=== PATIENT | male | born 2005 | race African-American/Black ===

== ENCOUNTER 2024-11-20 20:02 | Emergency (ER) | payer SELFPAY ==
[~2024-11-20] VITALS: Ht 182.9 cm; Wt 100.0 kg
[2024-11-20 20:27] VITALS: BP 130/79; PULSE 88; RESP 16; TEMP 98.1; O2SAT 100
[2024-11-20 21:43] LABS: BASOPHILS % 0.1 % (0.0-2.0); EOSINOPHILS % 0.1 % (0.0-5.0); HEMATOCRIT. 45.7 % (42.0-52.0); LYMPHOCYTES % 11.1 % (20.0-50.0); MEAN CORPUSCULAR HEMOGLOBIN 28.9 pg (28.0-32.0); MEAN CORPUSCULAR HGB CONC 32.8 g/dL (31.0-37.0); MEAN CORPUSCULAR VOLUME 88.2 fL (80.0-94.0); MEAN PLATELET VOLUME 8.9 fl (7.4-10.4); MONOCYTES % 4.2 % (2.0-8.0); NEUTROPHILS % 84.5 % (40.0-76.0); PLATELET 253 x1000/uL (130-400); RED BLOOD CELL COUNT 5.18 mill/uL (4.7-6.1); RED CELL DISTRIBUTION WIDTH 13.7 % (11.6-14.6); WHITE BLOOD COUNT 10.8 x1000/uL (4.5-11.0)
[2024-11-20 21:53] LABS: CHLORIDE 103 mEq/L (98-107); POTASSIUM 4.7 mEq/L (3.5-5.1); SODIUM 136 mEq/L (136-145)
[2024-11-20 21:54] LABS: CALCIUM 9.6 mg/dL (8.7-10.4); CARBON DIOXIDE 20 mEq/L (21-32)
[2024-11-20 21:59] LABS: CREATININE 1.1 mg/dL (0.6-1.3); GLUCOSE 137 mg/dL (70-105); UREA NITROGEN BLOOD 7 mg/dL (9-23)
[2024-11-20] MEDS: LEVETIRACETAM 1000MG PREMIX 100 ML IV ONE (22:06)
[2024-11-20 22:28] LABS: ETHANOL BLOOD < 10 mg/dL (<10)
[2024-11-20 22:32] LABS: LACTIC ACID 6.8 mmol/L (0.4-2.0)
[2024-11-21] MEDS ORDERED: LEVE1000 MT (01:05)
== END 2024-11-21 01:28 | disposition home or self-care (01) ==
LOC: ER 20:02
DX: S00.512A Abrasion of oral cavity, initial encounter (principal); R56.9 Unspecified convulsions; R41.82 Altered mental status, unspecified; X58.XXXA Exposure to other specified factors, initial encounter; Y93.89 Activity, other specified; Y92.89 Other specified places as the place of occurrence of the external cause; Y99.8 Other external cause status
CPT/HCPCS: 80048; 80320; 83605; 85025; 36415; 71045; 70450; 96365; 99285; J1953; Z7610 ×3; G0480

== ENCOUNTER 2025-03-23 16:13 | Emergency (ER) | payer OTHER ==
[~2025-03-23] VITALS: Ht 177.8 cm; Wt 118.0 kg
[~2025-03-23 16:13] MED LIST: LEVE1000 MT
[2025-03-23 16:14] VITALS: O2SAT 96
[2025-03-23] MEDS: LEVETIRACETAM 1000MG PREMIX 100 ML IV ONE (16:43)
[2025-03-23 16:57] LABS: BASOPHILS % 0.3 % (0.0-2.0); EOSINOPHILS % 0.4 % (0.0-5.0); HEMATOCRIT. 45.2 % (42.0-52.0); HEMOGLOBIN. 14.5 g/dL (14.0-18.0); LYMPHOCYTES % 39.1 % (20.0-50.0); MEAN CORPUSCULAR HGB CONC 32.2 g/dL (31.0-37.0); MEAN CORPUSCULAR VOLUME 87.1 fL (80.0-94.0); MEAN PLATELET VOLUME 8.8 fl (7.4-10.4); MONOCYTES % 10.8 % (2.0-8.0); NEUTROPHILS % 49.4 % (40.0-76.0); PLATELET 245 x1000/uL (130-400); RED BLOOD CELL COUNT 5.18 mill/uL (4.7-6.1); RED CELL DISTRIBUTION WIDTH 13.9 % (11.6-14.6); WHITE BLOOD COUNT 6.7 x1000/uL (4.5-11.0)
[2025-03-23 17:09] LABS: CHLORIDE 104 mEq/L (98-107); SODIUM 138 mEq/L (136-145)
[2025-03-23 17:10] LABS: CALCIUM 9.1 mg/dL (8.7-10.4); CARBON DIOXIDE 12 mEq/L (21-32)
[2025-03-23 17:15] LABS: ETHANOL BLOOD < 10 mg/dL (<10); GLUCOSE 122 mg/dL (70-105); UREA NITROGEN BLOOD 7 mg/dL (9-23)
[2025-03-23] MEDS: IBUPROFEN 600MG TABLET PO ONE (18:51)
[2025-03-23 20:44] VITALS: BP 95/62; PULSE 75; RESP 16; TEMP 36.7; O2SAT 96
== END 2025-03-23 20:46 | disposition home or self-care (01) ==
LOC: ER 16:13
DX: R56.9 Unspecified convulsions (principal); Z79.899 Other long term (current) drug therapy; Z88.8 Allergy status to other drugs, medicaments and biological substances
CPT/HCPCS: 80048; 80320; 82962; 85025; 36415; 96365; 99284; J1953; G0480